=== PATIENT | male | born 2000 | race Caucasian/White ===

== ENCOUNTER → 2023-02-03 | Outpatient (CLI) | payer SELFPAY | END | disposition home or self-care (01) | PROVIDERS: PCP Family Medicine; Referring Provider Nurse Practitioner Family; Visit Provider Nurse Practitioner Family | DX: R00.2 Palpitations (principal) | CPT/HCPCS: 93225; 93226 ==

== ENCOUNTER → 2023-02-12 | Outpatient (CLI) | payer SELFPAY ==
--- NOTE | 2023-02-12 12:57 | ECHOD_ITS ---
Reason For Study: PALPITATIONS Procedure This was a 2D Doppler, Color Flow transthoracic echocardiogram. Exam performed in department. Left Ventricle Normal left ventricle. The left ventricular ejection fraction is 65 %. Right Ventricle Normal right ventricle. Atria The left and right atria are normal. Mitral Valve The mitral valve is structurally normal. No prolapse or stenosis seen. Tricuspid Valve Normal tricuspid valve. Aortic Valve Trisinus/trileaflet aortic valve. Pulmonic Valve The pulmonic valve is not well visualized. Great Vessels Normal sized aortic root. Pericardium/Pleural No pericardial effusion. MMode/2D Measurements & Calculations LVIDd: 4.6 cm IVSd: 0.89 cm Ao root diam: 2.8 cm LVIDs: 3.2 cm LVPWd: 0.95 cm RVDd: 3.3 cm FS: 30.2 % LAV(MOD-bp): 52.9 ml LVAd ap4: 30.9 cm2 LVAd ap2: 26.3 cm2 LAV(MOD-bp) Indexed: 29.7 ml/m2 LVLd ap4: 8.5 cm LVLd ap2: 8.6 cm LAV(MOD-sp2): 51.0 ml EDV(MOD-sp4): 93.9 ml EDV(MOD-sp2): 68.2 ml LAV(MOD-sp4): 51.0 ml EDV(sp4-el): 95.1 ml EDV(sp2-el): 68.3 ml LVAs ap4: 14.7 cm2 LVAs ap2: 13.6 cm2 LVLs ap4: 6.9 cm LVLs ap2: 7.1 cm ESV(MOD-sp4): 27.8 ml ESV(MOD-sp2): 23.4 ml ESV(sp4-el): 26.6 ml ESV(sp2-el): 22.2 ml EF(MOD-sp4): 70.4 % EF(MOD-sp2): 65.7 % EF(sp4-el): 72.0 % SV(MOD-sp4): 66.1 ml SV(MOD-sp2): 44.9 ml SV(sp4-el): 68.5 ml LA dimension(2D): 2.9 cm LA A4 area: 17.2 cm2 RA A4 area: 14.2 cm2 TAPSE: 2.6 cm Time Measurements MV dec time: 0.18 sec Doppler Measurements & Calculations MV E max nilson: 102.3 cm/sec Lat Peak E' Nilson: 20.6 cm/sec Med Peak E' Nilson: 18.8 cm/sec MV A max nilson: 45.7 cm/sec E/E' lat: 5.0 E/E' med: 5.4 MV E/A: 2.2 MV V2 max: 104.1 cm/sec MV P1/2t max nilson: 100.0 cm/sec Ao V2 max: 153.7 cm/sec MV max P.3 mmHg MV P1/2t: 43.4 msec Ao max P.5 mmHg MV V2 mean: 50.9 cm/sec MV dec slope: 675.3 cm/sec2 Ao V2 mean: 103.3 cm/sec MV mean P.3 mmHg Ao mean P.9 mmHg MV V2 VTI: 31.8 cm MVA(P1/2t): 5.1 cm2 Ao V2 VTI: 31.8 cm AV (velocity ratio): 0.83 LV V1 max: 136.2 cm/sec PA V2 max: 100.4 cm/sec LV V1 max P.4 mmHg PA V2 mean: 76.6 cm/sec LV V1 mean P.9 mmHg LV V1 mean: 92.8 cm/sec LV V1 VTI: 26.5 cm ECHO/Echo Complete Interpretation Summary The left ventricular ejection fraction is 65 %. Ordering Physician: Nolvia Casey Referring Physician: Nolvia Casey Performed By: Geni Mijares, SHEILA, RVT
== END | disposition home or self-care (01) ==
LOC: CVS 12:56
PROVIDERS: PCP Family Medicine; Referring Provider Nurse Practitioner Family; Visit Provider Nurse Practitioner Family
DX: R00.2 Palpitations (principal)
CPT/HCPCS: 93306

== ENCOUNTER 2023-10-23 00:18 | Emergency (ER) | payer OTHER, SELFPAY ==
[2023-10-23 00:18] VITALS: BP 133/84; PULSE 63; RESP 16; TEMP 36.9; O2SAT 99; BMI 22.1
--- NOTE | 2023-10-23 00:50 | EKG12_ITS ---
Test Reason : DYSRHYTHMIA Blood Pressure : / mmHG Vent. Rate : 063 BPM Atrial Rate : 063 BPM P-R Int : 166 ms QRS Dur : 090 ms QT Int : 396 ms P-R-T Axes : 066 078 029 degrees QTc Int : 405 ms Sinus rhythm with marked sinus arrhythmia Otherwise normal ECG Confirmed by Jag Martinez ([id number]), photographic editor SHERRI GASTELUM ([id number]) on 10/27/2023 6:47:05 AM Referred By: THU Confirmed By:Jag Martinez
--- NOTE | 2023-10-23 01:23 | EDS_ITS ---
HPI History of Present Illness Chief Complaint: Dizziness Informant: patient and parent Narrative Narrative: Patient is a 23 year old male presenting with lightheadedness. Patient states that is started today around 2 PM or 2:30 when he was on break. He noticed that when he got home from work around 4PM he felt like he was going to pass out. Patient states he has not felt this way before. He notes he is currently feeling better. 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 Denies any associated chest pain, shortness of breath, nausea, vomiting, leg swelling, fever or black or blood in the stool. Denies any history of DVT or PE. A little less than a year ago patient had a workup for palpitations and chest discomfort including 48-hour Holter monitor and an echocardiogram which was largely normal. He states that his is a different feeling. Denies associated numbness or tingling. No other complaints or concerns at this time. [facility] Medical History no medical history Home Medications ?Medication ?Instructions ?Recorded ?Last Taken ?Type NK 10/23/23 Unknown History Allergy/AdvReac Type Severity Reaction Status Date / Time No Known Allergies Allergy Verified 10/23/23 00:22 Surgical History no surgical history Social History Smoking Status: Current some day smoker tobacco type: cigarettes ROS ROS ED Constitutional Constitutional ED: Denies chills or fever(s) Eyes Eyes: Denies blurry vision Cardiovascular Cardiovascular: Denies chest pain or palpitations Respiratory/Chest Respiratory/Chest: Denies cough or dyspnea Gastrointestinal Gastrointestinal: Denies abdominal pain, nausea or vomiting Musculoskeletal Musculoskeletal: Denies arthralgias or myalgias Integumentary Denies rash Neurologic Neurologic: Reports other Details: Positive lightheadedness ; Denies headache(s), paresthesias or weakness EXAM Physical Exam Const Vital Signs: 10/23/23 00:18 10/23/23 01:37 10/23/23 02:00 Temperature 98.4 F Temperature Source Oral Pulse Rate 63 57 L Pulse Rate [Lying] 51 L Pulse Rate [Sitting (for 1 minute prior to obtaining)] 53 L Pulse Rate [Standing (for 1 minute prior to obtaining)] 78 Respiratory Rate 16 19 H Blood Pressure 133/84 H 94/67 Blood Pressure [Lying] 96/62 Blood Pressure [Sitting (for 1 minute prior to obtaining)] 100/67 Blood Pressure [Standing (for 1 minute prior to obtaining)] 104/74 Blood Pressure Mean 100 76 Blood Pressure Mean [Lying] 73 Blood Pressure Mean [Sitting (for 1 minute prior to obtaining)] 78 Blood Pressure Mean [Standing (for 1 minute prior to obtaining)] 84 Pulse Ox 99 98 Oxygen Delivery Method Room Air Positive well nourished and well developed General Appearance ED: well developed and NAD HEENT Reports moist mucous membranes Eyes EOMs intact bilaterally Neck supple Chest Wall inspection of chest normal and palpation of chest normal Resp normal respiratory effort and clear to auscultation bilaterally Cardio regular rate and regular rhythm GI normal to inspection, nondistended, normoactive bowel sounds Extremity normal to inspection General Extremety ED: Negative for edema General Extremity: Negative for edema Neuro oriented x3 Sensorium / Orientation: alert Motor Exam: Negative for general weakness Psych mental status grossly normal Skin no rashes or lesions noted MDM MDM MDM Narrative Medical decision making narrative: Patient evaluated for lightheadedness that started today. Vital signs are normal in the ER. He is currently asymptomatic. Will check EKG and orthostatic vital signs and reevaluate. Orthostatics negative. Patient asymptomatic during them. His heart rate does go up but he has no change in his blood pressure. I offered further workup including IV fluids and checking labs/electrolytes however patient declined. He will push fluids at home. Encouraged to follow-up with his primary care doctor, Dr. Palafox. Admits to drinking energy drinks throughout the day. Notes his urine is been a little darker today. Will try to cut back on his energy drinks and push oral fluids. Encouraged return to emergency room if he has a progression or worsening of his symptoms. At this time I do think he stable for outpatient follow-up. Patient is PE RC negative. He overall is well-appearing. Low suspicion for more severe process such as ACS, pulmonary emboli. Rhythm Strip Rhythm Strip: Sinus Rhythm Rate: 63 Ectopy: None EKG Initial EKG: Attestation: I personally reviewed and interpreted this EKG as follows: Interpretation: Sinus Rhythm Comments: Normal sinus rhythm at a rate of 63 bpm with sinus arrhythmia Normal axis Normal intervals Normal ST segments Discharge Plan Triage Chief Complaint: Dizziness ED Provider: Joyce Stewart Dx/Rx/DC Orders Clinical Impression: Dizziness Instructions: ED Dizziness, Uncertain Cause Prescriptions: No Action NK Primary Care Provider: Bryan Palafox Referrals: Bryan Palafox, [Primary Care Provider] - Activity Restrictions/Additional Instructions: Please follow-up with your primary care doctor. Make sure you drink plenty of fluids. Please moderate your use of energy drinks. Print Language: Chadian Disposition Disposition: Home, Self Care
[2023-10-23 01:37] VITALS: BP 100/67; BP 104/74; BP 96/62; PULSE 51; PULSE 53; PULSE 78
[2023-10-23 02:00] VITALS: BP 94/67; PULSE 57; RESP 19; O2SAT 98
[2023-10-23 02:45] VITALS: BP 98/75; PULSE 62; RESP 16; TEMP 36.8; O2SAT 98
== END 2023-10-23 02:45 | disposition home or self-care (01) ==
PROVIDERS: Emergency Provider Emergency Medicine; PCP Family Medicine; Visit Provider Emergency Medicine
DX: R42 Dizziness and giddiness (principal); F17.210 Nicotine dependence, cigarettes, uncomplicated
CPT/HCPCS: 93005; 99283